=== PATIENT | male | born 1935 | race Caucasian/White ===

== ENCOUNTER 2017-03-10 16:45 | Observation (INO) | payer OTHER ==
--- NOTE | 2017-03-10 21:22 | NUR ---
RECEIVED PT TO ROOM, DIRECT ADMIT FROM DR. CAMARGO OFFICE, ASK YENNY FOR ORDER,
--- NOTE | 2017-03-10 23:45 | NUR ---
PT RESTING WELL WITHOUT C/O OR DISTRESS NOTED. NO CHANGES NOTED IN ASSESSMENT. CALL LIGHT WITHIN REACH. WILL CONT TO MONITOR.
--- NOTE | 2017-03-10 23:52 | NUR ---
IV STARTED IN L. UPPER ARM, EKG COMPLETE,
--- NOTE | 2017-03-11 02:42 | NUR ---
PT SLEEPING, BED IS LOW, SRX2, CALL LIGHT IN REACH, WILL CONTINUE PLAN OF CARE
[2017-03-11] MEDS ORDERED: PLAVIX75 MG PO (03:27)
[2017-03-11 04:00] VITALS: BP 93/57
[2017-03-11 04:38] LABS: BASOPHILS 0.2 % (0-2); EOSINOPHILS 1.1 % (0-7); HEMATOCRIT 39.1 % (42.0-54.0); HEMOGLOBIN 13.4 g/dL (13.5-17.5); IMMATURE GRANULOCYTES 0.4 % (0-5); LYMPHOCYTES 10.3 % (15-50); MCH 31.2 pg (26.0-34.0); MCHC 34.3 g/dL (31.0-37.0); MCV 90.9 fL (80.0-100.0); MEAN PLATELET VOLUME 10.1 fL (7.4-10.4); MONOCYTES 3.2 % (2-11); NEUTROPHILS 84.8 % (40-80); PLATELET COUNT 166 10x3/uL (130-400); RDW 13.7 % (11.5-14.5); WBC 9.3 10x3/uL (4.8-10.8)
[2017-03-11 05:00] LABS: BILIRUBIN - TOTAL 0.86 mg/dL (0.2-1.3); CALCIUM 9.2 mg/dL (8.5-10.1); CARBON DIOXIDE 26.9 mmol/L (21.0-32.0); CREATININE - SERUM 1.6 mg/dL (0.6-1.3); PROTEIN - SERUM 7.2 g/dL (6.4-8.2)
[2017-03-11 05:01] LABS: POTASSIUM - SERUM 2.9 mmol/L (3.5-5.1)
--- NOTE | 2017-03-11 05:02 | NUR ---
LAB CALLED Cirilo2.9, will start electolylite protocol
[2017-03-11] MEDS ORDERED: SYMBICORT 16010.2 GM INH (06:23)
[2017-03-11] MEDS ORDERED: CELEXA40 MG PO (06:23)
[2017-03-11] MEDS ORDERED: LASIX40 MG PO (06:24)
[2017-03-11] MEDS ORDERED: K-TAB10 MEQ PO (06:24)
[2017-03-11] MEDS ORDERED: METOPROLOL TART50 MG PO (06:25)
[2017-03-11] MEDS ORDERED: BAYER CHEWABLE81 MG PO (06:25)
[2017-03-11] MEDS ORDERED: SPIRIVA18 MCG INH (06:26)
[2017-03-11 07:00] VITALS: BP 98/48
--- NOTE | 2017-03-11 07:36 | NUR ---
AM ROUNDING- RECEIVED REPORT FROM TELEPHONE OPERATOR NURSE DASHA. PT IS CURRENTLY LAYING IN BED ON BACK WITH EYES CLOSED RESTING. ON ROOM AIR. NO MONITOR. IV SEEN TO LEFT UPPER ARM THAT IS CURRENTLY SALINE LOCKED. NO NEED AT CURRENT TIME. WILL CONTINUE TO MONITOR AND CONTINUE WITH PLAN OF CARE.
[2017-03-11 11:07] VITALS: BP 108/64
[2017-03-11 12:32] VITALS: Wt 65.6 kg
--- NOTE | 2017-03-11 13:04 | NUR ---
1254- PT TO CT SCAN VIA WHEELCHAIR. 1304- PT BACK FROM CT SCAN VIA WHEELCHAIR.
--- NOTE | 2017-03-11 15:32 | NUR ---
GUEST AT BEDSIDE. PT IS WANTING TO GO OUTSIDE. PAMELA SANCHEZ NP ON UNIT. ASKED PAMELA SANCHEZ NP IF IT WOULD BE OKAY FOR PT TO GO OUTSIDE WITH GUEST FOR A LITTLE BIT, PAMELA SANCHEZ NP STATES THAT IS FINE. I ESCORTED PT OUT IN WHEELCHAIR ACCOMPANIED BY GUEST (TUBE MACHINE OPERATOR HELPER FROM [facility]). WILL CHECK ON PT AND CONTINUE TO MONITOR.
--- NOTE | 2017-03-11 16:01 | NUR ---
1450- CHECKED ON PT, PT IS SITING OUTSIDE IN PT AREA WITH GUEST VISITING. NO NEED AT CURRENT TIME.
--- NOTE | 2017-03-11 16:02 | NUR ---
1602- PT BACK FROM OUTSIDE VIA WHEELCHAIR. ELDER EMMANUEL IS ASSISTING PT BACK TO ROOM.
--- NOTE | 2017-03-11 18:07 | NUR ---
PT IS CURRENTLY SITTING UP ON SIDE OF BED WITH EYES OPEN RESTING. PT IS WANTING TO GO HOME. I INFORMED PT THAT WILL HAVE TO DISCHARGE PT. NO OTHER NEED AT CURRENT TIME. WILL CONTINUE TO MONITOR.
--- NOTE | 2017-03-11 18:11 | NUR ---
Patient was a direct admit from clinic- urgent care services. Admitted to OBS w/ Exacerbation of COPD. TC to the AOD office. Spoke with Mino. He states his understanding is if patient is in OBS [place] will pay. OBS services for 24-28 hrs. CM to call in the AM with the plan. If patient will require greater than 48 hrs, he will need to be transferred. The [facility] presently has telemetry beds. patient seen by DR Ayala his afternoon. Pulmonary consult completed this PM.
--- NOTE | 2017-03-11 18:32 | NUR ---
Is the patient Alert and Oriented? Yes 0 * How many steps to enter\\exit or inside your home? Two steps 0 * PCP DR Isaac Priest for "many years" 0 * Preadmission Environment Home Alone 0 * ADLs Independent 0 * Equipment Cane 0 * Other Equipment none 0 * List name and contact numbers for known caregivers / representatives who currently or will assist patient after discharge: Ynes Strauss his daughter lives out of state contact phone 0 * Community resources currently utilized None 0 * Please name any agencies selected above. N/A 0 * Additional services required to return to the preadmission environment? Yes 0 * Can the patient safely return to the preadmission environment? Yes 0 * Has this patient been hospitalized within the prior 30 days at any hospital? No 0 Grand Total: 0
--- NOTE | 2017-03-11 18:56 | NUR ---
TC to patient's daughter, Ynes, as the patient does not understand why he is at [facility]. DR Priest has been his PCP for a number of years. He is here w/ Exacerbation of COPD, 20 lb wt loss in 2 months, edematous legs and feet. Patient had stents placed December 2016 at [facility] w/ DR Rolon. He has a hx of "heart surgery" 1997 or 1998. Stents placed in 1999. Patient has been feeling poorly since Monday of this week w/ progressive weakness and worsening sx's. His daughter calls him every evening. He lives alone and normally does his own cooking. His dtr states he has had an ice cream cone, bologna sandwich and hamburger this week until admission. He is very independent. Is . He recently lost a good friend who helped him. He is also still grieving his son who tragically in an accident as per the dtr. patient ambulates w/ a cane. Does not have oxygen or a nebulizer, He utilizes [employer]. Patient has air conditioning but does not use it. States he is always cold. Slept w/ his clothes and 3 blankets because his room was too cold. His daughter would like some h/h services to assist the patient at discharge. Patient may feel he does not need them per the dtr. CM to follow for discharge planning needs.
[2017-03-11 20:30] VITALS: BP 138/60
--- NOTE | 2017-03-11 20:30 | NUR ---
PT ALERT/ORIENTED TO SELF BUT THINKS HE SHOULD BE LOOKING FOR THE FRONT DOOR TO GO HOME. TALKED WITH PATIENT ABOUT HOW HE SAW THE LUNG DR SANGEETA) TOADY AND SHE HAS MORE TESTS TO DO AND WILL BE SEEING HIM AGAIN IN THE AM. PT WITH NONLABORED RESPIRATIONS ON ROOM AIR. PIV TO DOUG. AMBULATORY WITH A CANE. CLOSE SUPERVISION THAT HE STAYS PUT IN HIS ROOM AND DOES NOT WANDER. CPOC.
--- NOTE | 2017-03-11 21:00 | NUR ---
PT'S DAUGHTER, SANDRA, CALLED ON PHONE FOR UPDATE.
[2017-03-12 04:00] VITALS: BP 121/82; BP 157/51
--- NOTE | 2017-03-12 05:50 | NUR ---
AM MED GIVEN. NO DISTRESS. CPOC.
--- NOTE | 2017-03-12 07:48 | NUR ---
AM ROUNDING- RECEIVED REPORT FROM ACCOUNT SERVICE ASSOCIATE NURSE ADWOA. PT IS CURRENTLY LAYING IN BED ON BACK WITH EYES OPEN RESTING. ON ROOM AIR. NO MONITOR. IV SEEN TO LEFT UPPER ARM THAT IS CURRENTLY SALINE LOCKED. NO NEED AT CURRENT TIME. WILL CONTINUE TO MONITOR AND CONTINUE WITH PLAN OF CARE.
[2017-03-12 11:52] VITALS: BP 132/72
[2017-03-12 13:47] LABS: BASOPHILS 0 % (0-2); EOSINOPHILS 0 % (0-7); HEMATOCRIT 35.3 % (42.0-54.0); HEMOGLOBIN 12.1 g/dL (13.5-17.5); IMMATURE GRANULOCYTES 0.3 % (0-5); LYMPHOCYTES 4.7 % (15-50); MCH 31.2 pg (26.0-34.0); MCHC 34.3 g/dL (31.0-37.0); MEAN PLATELET VOLUME 9.8 fL (7.4-10.4); MONOCYTES 4.7 % (2-11); NEUTROPHILS 90.3 % (40-80); PLATELET COUNT 165 10x3/uL (130-400); RBC 3.88 10x6/uL (4.20-6.10); RDW 14.1 % (11.5-14.5)
[2017-03-12 13:48] LABS: WBC 12.4 10x3/uL (4.8-10.8)
[2017-03-12 13:54] LABS: ANION GAP 14.4 mmol/L (8-16); CALCIUM 8.8 mg/dL (8.5-10.1); CARBON DIOXIDE 25.8 mmol/L (21.0-32.0); CREATININE - SERUM 1.4 mg/dL (0.6-1.3); POTASSIUM - SERUM 4.2 mmol/L (3.5-5.1)
[2017-03-12] MEDS ORDERED: PREDNISONE10 MG PO (15:31)
[2017-03-12] MEDS ORDERED: LEVAQUIN500 MG PO (15:31)
--- NOTE | 2017-03-12 17:57 | NUR ---
D/C INSTRUCTIONS EXPLAINED TO PT. D/C PAPERWORK SIGNED AND PLACED IN CHART. IV TO LEFT UPPER ARM REMOVED WITH CATH TIP INTACT. COVERED SITE WITH 2X2 GUAZE PADS AND SECURED WITH TAPE. TOLERATED WELL. D/C PT VIA WHEELCHAIR OUT TO PTS CAR. PT IS DRIVING HOME. DAUGHTER SANDRA IS AWARE. ELDER HAYES (DISCHARGE CORDINATOR IS AWARE).
== END 2017-03-12 18:03 | disposition home or self-care (01) ==
LOC: OBSVTIME 16:45 → D.M2 16:45
PROVIDERS: Family Medicine Adult Medicine; ADMIT Family Medicine
DX: J44.1 Chronic obstructive pulmonary disease with (acute) exacerbation (principal); Z72.0 Tobacco use